=== PATIENT | female | born 1970 | race Caucasian/White ===

== ENCOUNTER 2020-11-30 18:19 | Inpatient (IN) | payer OTHER ==
[~2020-11-30] VITALS: Ht 162.6 cm; Wt 117.9 kg
[2020-11-30 19:04] LABS: HEMOGLOBIN 9.6 gm/dl (12.3-15.3); RED BLOOD COUNT 3.39 M/UL (4.00-5.10)
[2020-11-30 19:26] LABS: BUN/CREATININE RATIO 11 (0-10)
[2020-12-01] MEDS ORDERED: BUPROPION XL150 MG PO (03:19)
[2020-12-01] MEDS ORDERED: AMLODIPINE BESY10 MG PO (03:19)
[2020-12-01] MEDS ORDERED: AMIODARONE HCL200 MG PO (03:20)
[2020-12-01] MEDS ORDERED: LOSARTAN POTAS100 MG PO ×2 (03:20→13:05)
[2020-12-01] MEDS ORDERED: ASPIRIN81 MG PO (03:20)
[2020-12-01] MEDS ORDERED: COREG 12.5MG12.5 MG PO (03:21)
[2020-12-01] MEDS ORDERED: ATORVASTATIN CA80 MG PO (03:21)
[2020-12-01] MEDS ORDERED: HYDROCODON-ACE1 EAC4 PO (03:22)
[2020-12-01] MEDS ORDERED: NIFEDIPINE ER60 MG PO (03:22)
[2020-12-01] MEDS ORDERED: SERTRALINE HCL100 MG PO (03:23)
[2020-12-01] MEDS ORDERED: VALSARTAN80 MG PO (03:23)
[2020-12-01] MEDS ORDERED: VALSARTAN160 MG PO (03:25)
[2020-12-01] MEDS ORDERED: MUCINEX600 MG PO (09:18)
[2020-12-02 06:50] LABS: BUN/CREATININE RATIO 6 (0-10)
[2020-12-02 07:21] LABS: HEMOGLOBIN 9.5 gm/dl (12.3-15.3); RED BLOOD COUNT 3.33 M/UL (4.00-5.10); WHITE BLOOD COUNT 6.2 K/UL (4.5-11.0)
--- NOTE | 2020-12-02 11:30 | NUR ---
PATIENT ROOM AIR SAT 86%
[2020-12-02] MEDS ORDERED: ELIQUIS 5 MG TAB5 MG PO (14:23)
== END 2020-12-02 18:48 | disposition home health service (06) | DRG 176 ==
LOC: ER1 18:19 → CDU 23:56 → MED SURG 4 23:56 → CDU 23:56 → MED SURG 4 12-01 03:12
PROVIDERS: Internal Medicine; Student in an Organized Health Care Education/Training Program; ADMIT Internal Medicine
PROC: B24BZZ4 Ultrasonography of Heart with Aorta, Transesophageal (ICD-10-PCS; principal; 2020-12-01)
DX: I26.93 Single subsegmental thrombotic pulmonary embolism without acute cor pulmonale (principal); J90 Pleural effusion, not elsewhere classified; I31.3 Pericardial effusion (noninflammatory); D68.0 Von Willebrand disease; J98.11 Atelectasis; Z68.41 Body mass index [BMI] 40.0-44.9, adult; Z20.822 Contact with and (suspected) exposure to COVID-19; E66.01 Morbid (severe) obesity due to excess calories; Z96.652 Presence of left artificial knee joint; F32.9 Major depressive disorder, single episode, unspecified; M51.36 Other intervertebral disc degeneration, lumbar region; I08.1 Rheumatic disorders of both mitral and tricuspid valves; D64.9 Anemia, unspecified; M19.90 Unspecified osteoarthritis, unspecified site; D50.9 Iron deficiency anemia, unspecified; I71.4 Abdominal aortic aneurysm, without rupture; I10 Essential (primary) hypertension; I27.20 Pulmonary hypertension, unspecified; Z79.82 Long term (current) use of aspirin; Z90.49 Acquired absence of other specified parts of digestive tract; Z88.0 Allergy status to penicillin; Z82.3 Family history of stroke
CPT/HCPCS: ECHO; 36415; 36600; 71045; 71275; 80048; 80053; 82550; 82553; 82607; 82746; 82803; 83540; 83550; 83735; 83874; 83880; 84484; 85025; 85027; 85245; 85246; 85247; 85610; 85730; 93005; 93306; 93970; 99285; G0378; J1650; J1756; J1940; Q9967; U0002

== ENCOUNTER → 2021-05-30 | Outpatient (CLI) | payer OTHER ==
[~2021-05-30] MED LIST: AMIODARONE HCL200 MG PO; AMLODIPINE BESY10 MG PO; ASPIRIN81 MG PO; ATORVASTATIN CA80 MG PO; BUPROPION XL150 MG PO; COREG 12.5MG12.5 MG PO; ELIQUIS 5 MG TAB5 MG PO; HYDROCODON-ACE1 EAC4 PO; LOSARTAN POTAS100 MG PO; MUCINEX600 MG PO; NIFEDIPINE ER60 MG PO; SERTRALINE HCL100 MG PO; VALSARTAN160 MG PO; VALSARTAN80 MG PO
== END ==
LOC: KOH-I 13:42
DX: M25.562 Pain in left knee (principal); M25.462 Effusion, left knee; R93.6 Abnormal findings on diagnostic imaging of limbs
CPT/HCPCS: 73562

== ENCOUNTER → 2021-07-20 | Outpatient (CLI) | payer OTHER ==
[2021-07-20 10:01] LABS: HEMOGLOBIN 10.4 gm/dl (12.3-15.3); RED BLOOD COUNT 3.94 M/UL (4.00-5.10); WHITE BLOOD COUNT 8.6 K/UL (4.5-11.0)
[2021-07-21 10:14] LABS: CREATININE, URINE 223.7 mg/dL (Not Estab.)
== END ==
LOC: US 09:30
PROVIDERS: Internal Medicine Nephrology
DX: N17.9 Acute kidney failure, unspecified (principal); R16.1 Splenomegaly, not elsewhere classified
CPT/HCPCS: 36415; 80048; 81001; 82043; 82570; 84156; 85027